=== PATIENT | male | born 1990 | race Caucasian/White ===

== ENCOUNTER 2020-05-31 17:40 | Emergency (ER) | payer SELFPAY ==
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
[2020-05-31 17:48] VITALS: BP 117/79; PULSE 75; RESP 18; TEMP 37.1; O2SAT 97
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
[2020-05-31] MEDS: KETOROLAC 30 MG/ML VIAL (*BKC) IV PUSH (19:18)
[2020-05-31 19:40] VITALS: BP 131/78; PULSE 79; RESP 12; O2SAT 100
[2020-05-31] MEDS: CYCLOBENZAPRINE HCL 10 MG TABLET PO (19:47)
== END 2020-05-31 19:40 | disposition home or self-care (01) ==
PROVIDERS: Emergency Provider Emergency Medicine
DX: S16.1XXA Strain of muscle, fascia and tendon at neck level, initial encounter (principal); S80.01XA Contusion of right knee, initial encounter; V49.40XA Driver injured in collision with unspecified motor vehicles in traffic accident, initial encounter
CPT/HCPCS: 72125; 73130; 73562; 96374; 99284; A9270; J1885